=== PATIENT | female | born 1935 | race Hispanic/Latino ===

== ENCOUNTER 2017-06-05 09:48 | Emergency (ER) | payer MEDICARE ==
[~2017-06-05] VITALS: Ht 162.6 cm; Wt 77.6 kg
[~2017-06-05 09:48] MED LIST: ADVAIR 250-501 EACH; ASPIR 8181 MG PO; CARTIA XT240 MG PO; DIOVAN160 MG PO; FERROUS SULFAT325 MG PO; FUROSEMIDE40 MG PO; GLIPIZIDE5 MG PO; KEFLEX500 MG PO; LANTUS 3ML100 UNITS/ SQ; LEVAQUIN250 MG PO; LEVAQUIN500 MG PO; LEVOTHYROXINE50 MCG PO; LOPID600 MG PO; MEDROL4 MG/DOSE-; METOPROLOL SUC100 MG PO; PRAVASTATIN SOD80 MG PO; PROAIR HFA INH8.5 GM INH; SYMBICORT 80-10.2 GM INH
--- NOTE | 2017-06-05 10:53 | Diagnostic Imaging Report ---
EXAMINATION: Chest, CHEST SINGLE (PORTABLE) INDICATION: Shortness of breath. COMPARISON: Portable chest 09/01/2016 FINDINGS: LINES: None. Heart: Normal cardiac silhouette. Vascular: The pulmonary vasculature is within normal limits. Atherosclerotic calcifications of the aortic arch. Mediastinum: No mediastinal, hilar, or axillary mass or lymphadenopathy. Lungs: No parenchymal mass. Low lung volumes are present bilaterally. Bibasilar airspace opacifications. Pleura: No pleural effusion. No pneumothorax. Bones: No acute osseous abnormality. Degenerative changes of the thoracic spine. Soft tissues: Normal. Impression: Bibasilar airspace opacifications may represent atelectasis or developing pneumonia. Signed by: Dr. Jaycob Galindo M.D. on 06/05/2017 10:50 AM
[2017-06-05 11:28] LABS: BASOPHILS # (AUTO) 0.1 (0.0-0.1); BASOPHILS % 1.3 % (0.0-1.0); EOSINOPHILS # (AUTO) 0.2 (0.0-0.4); EOSINOPHILS % 3.6 % (0.0-6.0); HEMATOCRIT 29.9 % (34.2-44.1); HEMOGLOBIN 10.2 g/dL (12.0-16.0); LYMPHOCYTES # (AUTO) 0.4 (1.0-3.2); LYMPHOCYTES % 6.6 % (18.0-39.1); MEAN CORPUSCULAR HEMOGLOBIN 33.8 pg (28-32); MEAN CORPUSCULAR HGB CONC 34.1 g/dL (31-35); MONOCYTES # (AUTO) 0.5 (0.2-0.8); MONOCYTES % 7.2 % (4.4-11.3); NEUTROPHILS # (AUTO) 4.9 (2.1-6.9); NEUTROPHILS % 77.4 % (38.7-80.0); PLATELET COUNT 103 x10e3/uL (140-360); RED BLOOD COUNT 3.02 x10e6/uL (3.6-5.1); RED CELL DISTRIBUTION WIDTH 14.7 % (11.7-14.4)
[2017-06-05 11:47] LABS: ALBUMIN 2.8 g/dL (3.5-5.0); ALBUMIN/GLOBULIN RATIO 0.8 (0.8-2.0); ANION GAP 12.9 mmol/L (8-16); CALCIUM 9.4 mg/dL (8.4-10.2); CREATININE, SERUM 1.82 mg/dL (0.57-1.11); POTASSIUM 3.9 mmol/L (3.5-5.1)
[2017-06-05 12:04] LABS: CREATINE KINASE MB 0.5 ng/mL (0.00-5.00); TROPONIN I 0.014 ng/mL (0-0.300)
[2017-06-05 12:46] VITALS: BP 139/56
== END 2017-06-05 13:32 | disposition home or self-care (01) ==
LOC: ER 09:48
DX: R50.9 Fever, unspecified (principal); R05 Cough; J09.X2 Influenza due to identified novel influenza A virus with other respiratory manifestations; I10 Essential (primary) hypertension; E11.9 Type 2 diabetes mellitus without complications; Z85.118 Personal history of other malignant neoplasm of bronchus and lung
CPT/HCPCS: 36415; 71010; 80053; 82550; 82553; 84484; 85025; 87040; 87400; 93005; 99284

== ENCOUNTER 2018-04-14 10:13 | Inpatient (IN) | payer MEDICARE ==
[~2018-04-14] VITALS: Ht 162.6 cm; Wt 64.2 kg
--- OUTSIDE RECORDS SUMMARY | 2018-04-14 10:16 | XMS REPORT ---
Demographics Address [address] [place] [address] Preferred Language Unknown Marital Status Unknown Sabianism Affiliation Unknown Race Unknown Ethnic Group Unknown Author Author [facility] Address Unknown Phone Unavailable Care Team Providers Care Attractions Associate Name Role Phone Vijya LAMB Unavailable Unavailable Problems This patient has no known problems. Allergies, Adverse Reactions, Alerts This patient has no known allergies or adverse reactions. Medications This patient has no known medications. Results Test Description Test Time Test Comments Text Results Atomic Results Result Comments CHEST SINGLE (PORTABLE) [place] [address] Patient Name: EDWARD CARABALLO MR #: [id number] : 1935 Age/Sex: 81/F Req #: [id number] Adm Physician: Ordered by: VALERIE LAMB MD Report #: [id number] Location: ER Room/Bed: Procedure: [id number] DX/CHEST SINGLE (PORTABLE) Exam Date: 06/05/17 Exam Time: 1035 REPORT STATUS: Signed EXAMINATION: Chest, CHEST SINGLE (PORTABLE) INDICATION: Shortness of breath. COMPARISON: Portable chest 09/01/2016 FINDINGS: LINES: None. Heart: Normal cardiac silhouette. Vascular: The pulmonary vasculature is within normal limits. Atherosclerotic calcifications of the aortic arch. Mediastinum: No mediastinal, hilar, or axillary mass or lymphadenopathy. Lungs: No parenchymal mass. Low lung volumes are present bilaterally. Bibasilar airspace opacifications. Pleura: No pleural effusion. No pneumothorax. Bones: No acute osseous abnormality. Degenerative changes of the thoracic spine. Soft tissues: Normal. Impression: Bibasilar airspace opacifications may represent atelectasis or developing pneumonia. Signed by: Dr. Stacy Villafana M.D. on 06/05/2017 10:50 AM Dictated By: STACY VILLAFANA MD 1050 Transcribed By: ANSLEY on 06/05/17 1050 COPY TO: VALERIE LAMB MD
[2018-04-14 11:37] LABS: CLARITY,URINE HAZY (CLEAR); COLOR,URINE YELLOW (YELLOW); KETONES,URINE NEGATIVE (NEGATIVE); LEUKOCYTE ESTERASE ,URINE TRACE (NEGATIVE); NITRITE,URINE NEGATIVE (NEGATIVE); PROTEIN,URINE DIPSTICK TRACE (NEGATIVE); URINE UROBILINOGEN 0.2 mg/dL (0.2 - 1)
[2018-04-14 11:38] LABS: BILIRUBIN,URINE NEGATIVE (NEGATIVE)
[2018-04-14 11:43] LABS: AMORPHOUS SEDIMENT,URINE FEW (FEW); BACTERIA,URINE MODERATE /HPF; EPITHELIAL CELLS,URINE FEW /LPF; MUCUS,URINE FEW (RARE)
[2018-04-14 11:58] LABS: BASOPHILS # (AUTO) 0.1 (0.0-0.1); BASOPHILS % 1.4 % (0.0-1.0); EOSINOPHILS # (AUTO) 0.4 (0.0-0.4); EOSINOPHILS % 6.5 % (0.0-6.0); HEMATOCRIT 26.5 % (34.2-44.1); HEMOGLOBIN 9.1 g/dL (12.0-16.0); LYMPHOCYTES # (AUTO) 0.7 (1.0-3.2); LYMPHOCYTES % 11.5 % (18.0-39.1); MEAN CORPUSCULAR HEMOGLOBIN 33.8 pg (28-32); MEAN CORPUSCULAR HGB CONC 34.3 g/dL (31-35); MEAN CORPUSCULAR VOLUME 98.5 fL (81-99); MONOCYTES # (AUTO) 0.4 (0.2-0.8); MONOCYTES % 6.5 % (4.4-11.3); NEUTROPHILS % 68.6 % (38.7-80.0); PLATELET COUNT 161 x10e3/uL (140-360); RED BLOOD COUNT 2.69 x10e6/uL (3.6-5.1); RED CELL DISTRIBUTION WIDTH 14.6 % (11.7-14.4)
[2018-04-14 12:08] LABS: ALBUMIN 2.6 g/dL (3.5-5.0); ALBUMIN/GLOBULIN RATIO 0.8 (0.8-2.0); ANION GAP 15.8 mmol/L (8-16); CALCIUM 9.2 mg/dL (8.4-10.2); CREATININE, SERUM 1.95 mg/dL (0.57-1.11); POTASSIUM 4.8 mmol/L (3.5-5.1)
[2018-04-14] MEDS ORDERED: DIATRIZOATE MEGL/DIATRIZOA SOD 30 ML BTL PO ONE (12:18)
[2018-04-14 12:19] LABS: AMYLASE 42 U/L (25-125); LIPASE 27 U/L (8-78)
--- NOTE | 2018-04-14 12:38 | Diagnostic Imaging Report ---
EXAMINATION: CHEST SINGLE (PORTABLE) INDICATION: Shortness of breath. COMPARISON: None FINDINGS: TUBES and LINES: None. LUNGS: Very low lung volumes. Perihilar and interstitial opacities are present. Patchy opacities at the lung base. PLEURA: No pleural effusion or pneumothorax. Mild elevation of the right hemidiaphragm. HEART AND MEDIASTINUM: The cardiomediastinal silhouette is unremarkable. Atherosclerotic calcification of the aortic arch. BONES AND SOFT TISSUES: No acute osseous lesion. Soft tissues are unremarkable. UPPER ABDOMEN: No free air under the diaphragm. IMPRESSION: Very low lung volumes, cannot exclude pulmonary interstitial edema. Patchy opacities at the lung bases may reflect atelectasis or developing pneumonia. Follow-up chest radiograph is suggested to assess for resolution. Signed by: Dr. Michaela Lan MD on 04/14/2018 12:35 PM
[2018-04-14 13:07] LABS: BAND NEUTROPHILS % (MANUAL) 1 %; EOSINOPHILS % (MANUAL) 7 % (0-7); LYMPHOCYTES % (MANUAL) 10 % (19-48); METAMYELOCYTES % (MANUAL) 1 % (0-0); MONOCYTES % (MANUAL) 8 % (3.4-9.0); MYELOCYTES % (MANUAL) 1 % (0-0); NEUTROPHILS % (MANUAL) 71 % (40-74)
[2018-04-14 13:08] LABS: ANISOCYTOSIS SLIGHT; HYPOCHROMASIA SLIGHT; PLATELET ESTIMATE ADEQUATE; PLATELET MORPHOLOGY COMMENT NORMAL; RBC MORPHOLOGY COMMENT NORMAL
--- NOTE | 2018-04-14 14:31 | Diagnostic Imaging Report ---
EXAM: CT Abdomen and Pelvis WITHOUT contrast INDICATION: Right-sided stomach pain. Bloating. COMPARISON: None. TECHNIQUE: Abdomen and pelvis were scanned utilizing a multidetector helical scanner from the lung base to the pubic symphysis without administration of IV contrast. Absence of intravenous contrast decreases sensitivity for detection of focal lesions and vascular pathology. Coronal and sagittal reformations were obtained. Routine protocol was performed. IV CONTRAST: None. ORAL CONTRAST: Gastrografin RADIATION DOSE: Total DLP: 543.76 mGy*cm Estimated effective dose: (DLP x 0.015 x size factor) mSv COMPLICATIONS: None FINDINGS: LINES and TUBES: None. LOWER THORAX: Extensive chronic appearing change in the lung bases. Calcification of the mitral valve. HEPATOBILIARY: Nodular shrunken liver consistent with cirrhosis. Likely small cyst near the dome of the liver. Dilated portal vein measuring 1.7 cm consistent with portal hypertension. No biliary ductal dilation. GALLBLADDER: Surgical clips in the gallbladder fossa. SPLEEN: Prominent size spleen. PANCREAS: No focal masses or ductal dilatation. ADRENALS: No adrenal nodules KIDNEYS/URETERS: No hydronephrosis. No cystic or solid mass lesions. No stones. GI TRACT: No abnormal distention, wall thickening, or evidence of bowel obstruction. Scattered diverticulosis without evidence of diverticulitis. PELVIC ORGANS/BLADDER: A small amount of air is seen within the lumen of the urinary bladder on sagittal image 65 could be due to prior catheterization. 3.5 cm cyst in the left upper pelvis of unknown clinical significance best seen on axial image 74. This may be adnexal in origin. There are what appear to be small right adnexal cysts. LYMPH NODES: No lymphadenopathy. VESSELS: Scattered vascular calcifications. PERITONEUM / RETROPERITONEUM: Marked ascites in the abdomen and pelvis. BONES: Scattered degenerative change.. SOFT TISSUES: Unremarkable. IMPRESSION: 1. Findings consistent with cirrhosis, portal hypertension and marked ascites. 2. Extensive chronic appearing changes in the lung bases. Nonemergent CT scan of the chest may be of benefit. 3. 3.5 cm cyst in the left upper pelvis of unknown significance. This may be adnexal in origin. Nonemergent pelvic MRI may be of benefit. 4. Scattered diverticulosis without evidence of diverticulitis. Signed by: Dr. Nirmal Frank M.D. on 04/14/2018 2:28 PM
[2018-04-14] MEDS ORDERED: SODIUM CHLORIDE FLUSH 10 ML SYR INJ PRN (15:45)
[2018-04-14] MEDS ORDERED: ONDANSETRON HCL INJ 2 MG/ML VIAL IV PRN (15:45)
[2018-04-14] MEDS ORDERED: MORPHINE SULFATE 2 MG/ML SYR IV PRN (15:45)
[2018-04-14] MEDS ORDERED: ALBUTEROL SULFATE HFA 8GM INHALATION AEROSOL INH PRN (16:15)
[2018-04-14 16:36] LABS: INR 1.06; PROTHROMBIN TIME 14.8 seconds (11.9-14.5)
[2018-04-14 16:44] LABS: CREATINE KINASE MB 1.1 ng/mL (0-5.0)
[2018-04-14 16:58] LABS: CHOL/HDL RATIO 5.2 (3.0-3.6)
--- NOTE | 2018-04-14 16:58 | History and Physical ---
PRIMARY CARE PHYSICIAN: Dr. Marie. SECURITY DELIVERY SPECIALIST: Dr. Angelo Eng. CHIEF COMPLAINT: Right upper quadrant abdominal pain. HISTORY OF PRESENT ILLNESS: This is an 82-year-old woman with a history of pulmonary fibrosis now developing right upper quadrant abdominal pain for the past week. The patient's abdomen has not enlarged in size. She does not have any leg edema. She does have chronic pulmonary fibrosis requiring 3 liters of oxygen at home. Her shortness of breath has worsened at home. Now, the patient presents for further evaluation and management. Her imaging suggested cirrhosis. The patient's also had cirrhosis, but he was an alcoholic. The patient does not have a history of excessive alcohol use. PAST MEDICAL HISTORY: Pulmonary fibrosis, urinary tract infection with E. coli, acute pyelonephritis, acute kidney injury, [id number] anemia, chronic kidney disease stage 3, hypertension, urinary tract infection with sepsis, hypertensive kidney disease, diverticulitis with abscess, left adrenal adenoma, thrombocytopenia, hyponatremia, urinary incontinence, mixed type, pneumonia, COPD, diabetes mellitus type 2, and diverticulosis, hypertension and hyperlipidemia, and hypertriglyceridemia. PAST SURGICAL HISTORY: Cholecystectomy, hysterectomy. ALLERGIES: PER ELECTRONIC MEDICAL RECORDS. FAMILY/SOCIAL HISTORY: The patient is . She has 8 children. No alcohol, illicits or cigarettes. MEDICATIONS: Per electronic medical records. REVIEW OF SYSTEMS: Denies any dizziness, chest pain, shortness of breath. Denies any nausea, vomiting, diarrhea. Denies any headache or vision changes. Denies any leg pain. PHYSICAL EXAMINATION VITAL SIGNS: Reviewed. GENERAL APPEARANCE: A tired-appearing woman resting in the bed. HEENT: Anicteric. CARDIOVASCULAR: Normal S1 and S2. LUNGS: Reduced breath sounds grossly with fine crackles at the bases. ABDOMEN: Large abdomen. Veins are visible on the abdominal wall. Right abdomen is tender. EXTREMITIES: No edema. NEUROLOGIC: Alert and oriented x3. Moving all extremities. SKIN: Dry. PSYCHIATRIC: Flat affect. LABS: Reviewed. MEDICATIONS: Reviewed. ASSESSMENT: An 82-year-old woman with: 1. Cirrhosis. 2. Ascites with caput medusae. 3. Hypertensive kidney disease. 4. Chronic pulmonary fibrosis. 5. Anemia of chronic disease with normocytic anemia, moderate. 6. Acute kidney injury in the setting of chronic kidney disease, stage 3. 7. Overweight stage. BMI 25.7. 8. Urinary tract infection. 9. Interstitial pulmonary edema. 10. Portal hypertension on imaging. 11. Diverticulosis without any evidence of diverticulitis. 12. Hypothyroidism. 13. Diabetes mellitus type 2. 14. Hypertension. 15. Hyperlipidemia. PLAN: 1. Obtain MRI to further image the liver. 2. GI consultation. 3. Obtain acute hepatitis panel. 4. Obtain alpha fetoprotein. 5. Will diurese the patient with IV Lasix while monitoring renal function, does have a history of chronic kidney disease, stage 3, and seems to have some worsening renal dysfunction. 6. Pulmonary consultation in the setting of chronic pulmonary fibrosis and pulmonary edema at this time. 7. Strict I's and O's. 8. Petty placement. 9. The patient will need a paracentesis. Will consult interventional radiology. 10. Will obtain a cell count and gram stain and culture of the fluid. 11. Will restart pulmonary medications. Will hold aspirin. Restart ferrous sulfate. 12. Will obtain lipid panel and restart gemfibrozil. 13. Will obtain hemoglobin A1c and lipid panel. 14. Check TSH. 15. Use SCDs for DVT prophylaxis and Pepcid for GI prophylaxis. DISPOSITION: Monitor closely. Follow up labs and imaging. Job#: [id number]
[2018-04-14 17:18] LABS: THYROID STIMULATING HORMONE 7.341 uIU/mL (0.350-4.940)
--- NOTE | 2018-04-14 17:36 | Consultation ---
DATE OF CONSULTATION: April 14, 2018 PULMONARY/CRITICAL CARE CONSULTATION REFERRING PHYSICIAN: Dr. Surjit Devries. PRIMARY CARE PHYSICIAN: Dr. Marie. CHIEF COMPLAINT: Known history of pulmonary fibrosis and cirrhosis with worsening abdominal swelling and dyspnea. HISTORY OF PRESENT ILLNESS: The patient is an 82-year-old woman. She has a history of usual interstitial pneumonitis for the past several years. She had a swallowing evaluation previously that was negative. She also has a history of cirrhosis radiographically in the past although she has never had symptoms from it. She denies ever being a drinker or having any history of hepatitis. The patient reports increased swelling of the abdomen. It has been increasing in severity over the past couple of weeks. She also notes worsening dyspnea and congestion. She has some mild cough but no fevers. PAST SURGICAL HISTORY: 1. Status post cholecystectomy. 2. Status post partial colectomy. 3. Status post hysterectomy. PAST MEDICAL HISTORY: 1. Diabetes. 2. Hypertension. 3. Hypothyroidism. SOCIAL HISTORY: The patient is a nonsmoker. She has never been a drinker. Her worked for a [employer] and had exposure to asbestos. He also had cirrhosis. FAMILY HISTORY: There is a history of diabetes and renal failure in the family. REVIEW OF SYSTEMS: No fever or headache. No neck pain. The patient does not have any chest pain. She does have some worsening dyspnea and has been using more oxygen recently. She has increasing abdominal girth. She notes some abdominal pain as well. She has no rebound or vomiting. She does have some mild leg edema. PHYSICAL EXAMINATION: VITAL SIGNS: Are stable. HEENT: Examination shows no facial swelling or erythema. LYMPHATIC: Examination shows no submandibular, cervical or supraclavicular adenopathy. CARDIAC: Exam reveals a regular rate and rhythm with a normal S1 and S2. There are no murmurs or rubs. LUNGS: Auscultation reveals decreased breath sounds at the bases. ABDOMEN: Distended. There is some ascites. There is no localized tenderness. EXTREMITIES: Patient does have 1+ leg edema. IMPRESSION: 1. Cirrhosis with new onset ascites. 1. Idiopathic pulmonary fibrosis. 2. Diabetes. 3. Chronic renal insufficiency stage 3 to 4. 4. Gastroesophageal reflux. PLAN: 1. Patient will need an ultrasound-guided thoracentesis with analysis for spontaneous bacterial peritonitis. 2. Patient should have antibiotics for possible spontaneous bacterial peritonitis. 3. Patient should receive albumin following the thoracentesis to prevent any worsening renal insufficiency. 4. We will consider spironolactone. 5. Continue oxygen. 6. Patient is not a candidate for Esbriet at this time because of her worsening liver problems. 7. Treatment for the pulmonary fibrosis should be conservative until the liver problem is addressed. Job#: [id number] EV
[2018-04-14] MEDS: FUROSEMIDE INJ 10 MG/ML 2 ML VIAL IV SCH (19:14)
[2018-04-14] MEDS: FAMOTIDINE 20 MG TAB PO SCH (19:14)
[2018-04-14] MEDS: FERROUS SULFATE 325 MG TAB PO SCH (19:14)
[2018-04-14] MEDS: AZTREONAM 1 GM/NS 50 ML 50 ML IV SCH (19:14)
[2018-04-14 20:46] LABS: BODY FLUID APPEARANCE TURBID; BODY FLUID COLOR RED; BODY FLUID TYPE PERITONEAL; RBC,BODY FLUID 13365 cells/uL; WBC,BODY FLUID 99 cells/uL
[2018-04-14] MEDS ORDERED: INSULIN DETEMIR 100 UNIT/ML PEN SQ SCH (21:00)
[2018-04-14 22:01] LABS: LYMPHOCYTES,BODY FLUID 92 %; MONO/MACROPHG,BODY FLUID 8 %
[2018-04-14 22:02] LABS: NEUTROPHILS,BODY FLUID 0 %
[2018-04-14 22:04] LABS: CREATINE KINASE MB 1.2 ng/mL (0-5.0)
[2018-04-14] MEDS ORDERED: DEXTROSE 50% SYRINGE 50 ML IV PRN (22:45)
[2018-04-14] MEDS: INSULIN REGULAR, HUMAN 100 UNIT/1 ML 3ML VIAL SQ SCH (23:05)
--- NOTE | 2018-04-15 06:14 | Diagnostic Imaging Report ---
CHEST SINGLE (PORTABLE), 04/15/2018 7:00 AM Technique: CHEST SINGLE (PORTABLE) Comparison: Previous day Clinical history: Shortness of breath Findings: Stable appearance of the heart, mediastinum, lungs and pleural spaces. Very low lung volumes with reticular opacities most likely underlying pulmonary fibrosis Impression: Stable chest Signed by: Dr Marisel Bear MD on 04/15/2018 6:11 AM
[2018-04-15 06:22] LABS: BASOPHILS # (AUTO) 0.1 (0.0-0.1); BASOPHILS % 1.5 % (0.0-1.0); EOSINOPHILS # (AUTO) 0.5 (0.0-0.4); EOSINOPHILS % 9.6 % (0.0-6.0); HEMATOCRIT 23.5 % (34.2-44.1); LYMPHOCYTES # (AUTO) 0.9 (1.0-3.2); LYMPHOCYTES % 15.7 % (18.0-39.1); MEAN CORPUSCULAR HEMOGLOBIN 33.2 pg (28-32); MEAN CORPUSCULAR VOLUME 97.5 fL (81-99); MONOCYTES # (AUTO) 0.5 (0.2-0.8); MONOCYTES % 8.7 % (4.4-11.3); NEUTROPHILS # (AUTO) 3.3 (2.1-6.9); NEUTROPHILS % 60.4 % (38.7-80.0); PLATELET COUNT 124 x10e3/uL (140-360); RED BLOOD COUNT 2.41 x10e6/uL (3.6-5.1); RED CELL DISTRIBUTION WIDTH 14.7 % (11.7-14.4)
[2018-04-15 06:34] LABS: ANION GAP 11.8 mmol/L (8-16); CALCIUM 8.9 mg/dL (8.4-10.2); CREATININE, SERUM 1.63 mg/dL (0.57-1.11); POTASSIUM 3.8 mmol/L (3.5-5.1)
[2018-04-15] MEDS ORDERED: AZTREONAM 1 GM VIAL ONE (06:44)
[2018-04-15] MEDS ORDERED: FUROSEMIDE INJ 10 MG/ML 2 ML VIAL ONE (06:45)
[2018-04-15] MEDS ORDERED: LEVOTHYROXINE SODIUM 50 MCG TAB ONE ×2 (06:45→06:55)
[2018-04-15] MEDS ORDERED: SODIUM CHLORIDE 0.9% 50ML 50 ML ONE (06:45)
[2018-04-15 06:50] LABS: CREATINE KINASE 14 IU/L (29-168)
[2018-04-15 06:51] LABS: CREATINE KINASE MB < 1.00 ng/mL (0-4.3)
[2018-04-15] MEDS: LEVOTHYROXINE SODIUM 50 MCG TAB PO SCH (06:55)
[2018-04-15] MEDS: AZTREONAM 1 GM/NS 50 ML 50 ML IV SCH (07:01)
[2018-04-15] MEDS: FUROSEMIDE INJ 10 MG/ML 2 ML VIAL IV SCH ×2 (07:01→17:40)
[2018-04-15 07:37] LABS: EOSINOPHILS % (MANUAL) 3 % (0-7); LYMPHOCYTES % (MANUAL) 16 % (19-48); MONOCYTES % (MANUAL) 7 % (3.4-9.0); MYELOCYTES % (MANUAL) 1 % (0-0); NEUTROPHILS % (MANUAL) 73 % (40-74); RBC MORPHOLOGY COMMENT NORMAL
[2018-04-15 07:38] LABS: PLATELET ESTIMATE ADEQUATE; PLATELET MORPHOLOGY COMMENT NORMAL
[2018-04-15] MEDS: FAMOTIDINE 20 MG TAB PO SCH ×2 (12:47→17:40)
[2018-04-15] MEDS: FERROUS SULFATE 325 MG TAB PO SCH ×2 (12:47→17:40)
[2018-04-15] MEDS: INSULIN REGULAR, HUMAN 100 UNIT/1 ML 3ML VIAL SQ SCH ×3 (12:56→20:51)
[2018-04-15 15:15] VITALS: BP 151/71
[2018-04-15 15:16] VITALS: BP 151/58
[2018-04-15] MEDS: AZTREONAM 1 GM VIAL IV SCH (18:11)
--- NOTE | 2018-04-15 18:58 | Diagnostic Imaging Report ---
EXAMINATION: MRI Abdomen without contrast. TECHNIQUE: Axial T1 nonfat sat in and out of phase, axial T2 fat sat, coronal T2 nonfat sat, axial DWI and ADC MR images of the abdomen were obtained. No intravenous gadolinium was given due to large infarct. CLINICAL HISTORY:Cirrhosis, portal hypertension, further evaluate cirrhotic liver COMPARISON: CT abdomen and pelvis without contrast 04/14/2018 FINDINGS: Markedly limited exam due to breathing motion artifact, as the patient was unable to breath-hold LOWER THORAX: No effusion or masses.. LIVER: Nodular hepatic contour, consistent with cirrhosis. No hepatic signal abnormality. Ill-defined 1.6 cm T2 mildly hyperintense lesion in hepatic segment VIII at the dome (series 9, image 15) but no definite restricted diffusion. No other focal lesions. BILIARY: Moderate to marked dilation of the common bile duct, which measures 1.6 cm in the ira hepatis and 1.1 cm at the pancreatic head. No intraluminal filling defects. No intrahepatic biliary ductal dilation. Cholecystectomy clips.. . PANCREAS: No mass or ductal dilatation. SPLEEN: No splenomegaly. ADRENALS: No nodules. KIDNEYS: No hydronephrosis or solid enhancing mass in the imaged portion of the kidneys. PERITONEUM / RETROPERITONEUM: Moderate intra-abdominal ascites.. GI TRACT: Visualized bowel shows no dilation or obstruction. LYMPH NODES: No upper abdominal lymphadenopathy. VESSELS: Normal flow voids are identified.. Dilated portal vein, which measures approximately 1.5-1.6 cm.. . BONES AND SOFT TISSUES: No abnormal bone marrow signal. No soft tissue abnormalities. IMPRESSION: 1. Markedly limited exam due to breathing motion artifact, as the patient was unable to breath-hold. 2. Cirrhotic liver with evidence of portal hypertension, manifested by ascites and dilated portal vein. 3. Ill-defined 1.6 cm lesion in hepatic segment VIII at the dome. This lesion measured fluid density on recent CT dated 04/14/2018 and shows no restricted diffusion, likely representing a simple cyst. Further characterization is limited by the lack of intravenous contrast. No suspicious lesions in this noncontrast exam. 4. Moderate to marked dilation of the common bile duct, likely reflecting postcholecystectomy status. No intraluminal filling defects are identified. Signed by: Dr. Peyman Lopez M.D. on 04/15/2018 6:55 PM
[2018-04-15 19:15] LABS: FREE THYROXINE INDEX 0.968 (1.4-3.8); THYROID STIMULATING HORMONE 4.668 uIU/mL (0.350-4.940)
[2018-04-15 20:00] VITALS: BP 157/61
[2018-04-15 20:30] VITALS: BP 157/61
[2018-04-16] VITALS: BP 157/66
[2018-04-16 04:00] VITALS: BP 148/69
[2018-04-16] MEDS: AZTREONAM 1 GM VIAL IV SCH (06:13)
[2018-04-16] MEDS: FUROSEMIDE INJ 10 MG/ML 2 ML VIAL IV SCH (06:14)
[2018-04-16] MEDS: LEVOTHYROXINE SODIUM 50 MCG TAB PO SCH (06:14)
[2018-04-16 07:11] LABS: ALANINE AMINOTRANSFERASE < 6 IU/L (0-55); ALBUMIN 2.3 g/dL (3.5-5.0); ALBUMIN/GLOBULIN RATIO 0.8 (0.8-2.0); ALKALINE PHOSPHATASE 91 IU/L (40-150); ANION GAP 11.5 mmol/L (8-16); BLOOD UREA NITROGEN 31 mg/dL (7-26); BUN/CREATININE RATIO 21 (6-25); CALCIUM 9.2 mg/dL (8.4-10.2); CARBON DIOXIDE 25 mmol/L (22-29); CHLORIDE 104 mmol/L (98-107); EST GLOMERULAR FILTRATION RATE 33 ML/MIN (60-); GLUCOSE 95 mg/dL (74-118); POTASSIUM 3.5 mmol/L (3.5-5.1); SODIUM 137 mmol/L (136-145)
[2018-04-16] MEDS: INSULIN REGULAR, HUMAN 100 UNIT/1 ML 3ML VIAL SQ SCH (07:30)
[2018-04-16 08:00] VITALS: BP 148/67
[2018-04-16] MEDS: FAMOTIDINE 20 MG TAB PO SCH (09:00)
[2018-04-16] MEDS: FERROUS SULFATE 325 MG TAB PO SCH (09:00)
[2018-04-16] MEDS ORDERED: FUROSEMIDE40 MG PO (09:26)
[2018-04-16] MEDS ORDERED: SPIRONOLACTONE25 MG PO (09:26)
[2018-04-16] MEDS ORDERED: FAMOTIDINE20 MG PO (09:26)
[2018-04-16 11:00] VITALS: BP 196/83
--- NOTE | 2018-04-17 07:38 | Diagnostic Imaging Report ---
Procedure: Ultrasound-guided diagnostic and therapeutic paracentesis cnc operator machinist: Michaela Lan MD Pre-operative diagnosis: Ascites Post-operative diagnosis: Decreased ascites status post paracentesis Conscious Sedation: The patient's heart rate and pulse oximetry were continuously monitored by the IR nurse. Additional Medications: Lidocaine 1% for local anesthesia Estimated blood loss: Minimal Specimens: 3,450 cc of serosanguinous fluid Implants: None TECHNIQUE/FINDINGS: Informed consent was obtained from the patient and documented in the medical record. The patient was placed in the supine position. Initial ultrasound demonstrated moderate to large volume lower abdominal ascites. The right lower abdomen was prepped and draped in standard sterile fashion. 1% lidocaine was infiltrated into the skin and subcutaneous tissues for local anesthesia. Then under continuous sonographic guidance, a 7 Fr catheter was advanced into the peritoneal space. A total of 3,450 cc of serosanguinous fluid was aspirated. The catheter was removed. Sterile dressing was applied. Sample was sent to the lab. The patient tolerated the procedure well. IMPRESSION: Ultrasound-guided diagnostic and therapeutic paracentesis with removal of 3,450 cc of serosanguinous fluid. Signed by: Dr. Michaela Lan MD on 04/17/2018 7:35 AM
--- NOTE | 2018-04-17 07:38 | Diagnostic Imaging Report ---
Procedure: Ultrasound-guided diagnostic and therapeutic paracentesis [place] machine operator: Michaela Lan MD Pre-operative diagnosis: Ascites Post-operative diagnosis: Decreased ascites status post paracentesis Conscious Sedation: The patient's heart rate and pulse oximetry were continuously monitored by the IR nurse. Additional Medications: Lidocaine 1% for local anesthesia Estimated blood loss: Minimal Specimens: 3,450 cc of serosanguinous fluid Implants: None TECHNIQUE/FINDINGS: Informed consent was obtained from the patient and documented in the medical record. The patient was placed in the supine position. Initial ultrasound demonstrated moderate to large volume lower abdominal ascites. The right lower abdomen was prepped and draped in standard sterile fashion. 1% lidocaine was infiltrated into the skin and subcutaneous tissues for local anesthesia. Then under continuous sonographic guidance, a 7 Fr catheter was advanced into the peritoneal space. A total of 3,450 cc of serosanguinous fluid was aspirated. The catheter was removed. Sterile dressing was applied. Sample was sent to the lab. The patient tolerated the procedure well. IMPRESSION: Ultrasound-guided diagnostic and therapeutic paracentesis with removal of 3,450 cc of serosanguinous fluid. Signed by: Dr. Michaela Lan MD on 04/17/2018 7:35 AM
== END 2018-04-16 11:26 | disposition home or self-care (01) | DRG 433 ==
LOC: ER 10:13 → UNDOADMIN 15:35 → ERHOLD 15:35 → MED/SURG2 04-15 13:56
PROVIDERS: ADMIT Internal Medicine; ATTEND Internal Medicine
PROC: 0W9G3ZX Drainage of Peritoneal Cavity, Percutaneous Approach, Diagnostic (ICD-10-PCS; principal; 2018-04-14)
DX: K74.69 Other cirrhosis of liver (principal); K76.6 Portal hypertension; R18.8 Other ascites; N17.9 Acute kidney failure, unspecified; N39.0 Urinary tract infection, site not specified; Z99.81 Dependence on supplemental oxygen; I12.9 Hypertensive chronic kidney disease with stage 1 through stage 4 chronic kidney disease, or unspecified chronic kidney disease; N18.3 Chronic kidney disease, stage 3 (moderate); E11.22 Type 2 diabetes mellitus with diabetic chronic kidney disease; Z88.1 Allergy status to other antibiotic agents; Z88.2 Allergy status to sulfonamides; Z83.3 Family history of diabetes mellitus; Z82.49 Family history of ischemic heart disease and other diseases of the circulatory system; E78.5 Hyperlipidemia, unspecified; E78.1 Pure hyperglyceridemia; I86.8 Varicose veins of other specified sites; D63.1 Anemia in chronic kidney disease; E66.3 Overweight; Z68.25 Body mass index [BMI] 25.0-25.9, adult; K57.30 Diverticulosis of large intestine without perforation or abscess without bleeding; E03.9 Hypothyroidism, unspecified; J84.112 Idiopathic pulmonary fibrosis; K21.9 Gastro-esophageal reflux disease without esophagitis; Z79.4 Long term (current) use of insulin
CPT/HCPCS: 36415; 49083; 51700; 71045; 74176; 74181; 74470; 80048; 80053; 80061; 81001; 82103; 82105; 82140; 82150; 82390; 82550; 82553; 82948; 83036; 83690; 84436; 84443; 84479; 84484; 85025; 85610; 86039; 86255; 87070; 87086; 87186; 87205; 89051; 93005; 99284; J1940

== ENCOUNTER 2018-05-10 16:05 | Inpatient (IN) | payer MEDICARE ==
[2018-05-09 21:34] VITALS: BP 156/69
[~2018-05-10] VITALS: Ht 162.6 cm; Wt 59.0 kg
[~2018-05-10 16:05] MED LIST changes: +FAMOTIDINE20 MG PO; +SPIRONOLACTONE25 MG PO
[2018-05-10] MEDS ORDERED: MEROPENEM 1GM 100 ML IV STA (16:08)
[2018-05-10] MEDS ORDERED: SODIUM CHLORIDE 0.9% 500ML 500 ML IV STA (16:08)
[2018-05-10] MEDS ORDERED: SODIUM CHLORIDE 0.9% 1000ML 1,000 ML IV STA (16:08)
[2018-05-10] MEDS ORDERED: MEROPENEM 1 GM VIAL IV NR (16:30)
[2018-05-10 17:15] LABS: BASOPHILS # (AUTO) 0.2 (0.0-0.1); BASOPHILS % 1.5 % (0.0-1.0); EOSINOPHILS # (AUTO) 0.3 (0.0-0.4); HEMATOCRIT 25.4 % (34.2-44.1); HEMOGLOBIN 9.6 g/dL (12.0-16.0); LYMPHOCYTES # (AUTO) 0.9 (1.0-3.2); LYMPHOCYTES % 8.1 % (18.0-39.1); MEAN CORPUSCULAR HEMOGLOBIN 32.3 pg (28-32); MEAN CORPUSCULAR HGB CONC 37.8 g/dL (31-35); MEAN CORPUSCULAR VOLUME 85.5 fL (81-99); MONOCYTES # (AUTO) 0.8 (0.2-0.8); NEUTROPHILS # (AUTO) 7.3 (2.1-6.9); NEUTROPHILS % 66.9 % (38.7-80.0); PLATELET COUNT 161 x10e3/uL (140-360); RED BLOOD COUNT 2.97 x10e6/uL (3.6-5.1); RED CELL DISTRIBUTION WIDTH 13.7 % (11.7-14.4)
[2018-05-10 17:29] LABS: ALBUMIN/GLOBULIN RATIO 0.8 (0.8-2.0); ANION GAP 15.2 mmol/L (8-16); CALCIUM 9.6 mg/dL (8.4-10.2); CREATININE, SERUM 2.45 mg/dL (0.57-1.11); POTASSIUM 4.2 mmol/L (3.5-5.1)
[2018-05-10 17:35] LABS: CREATINE KINASE MB 0.7 ng/mL (0-5.0)
--- NOTE | 2018-05-10 17:39 | Diagnostic Imaging Report ---
EXAM: XR CHEST 1 VIEW DATE: 05/10/2018 4:08 PM INDICATION: Weakness COMPARISON: 04/15/2018, no report available FINDINGS: Lines and Tubes: None Heart and Mediastinum: Accentuated by low lung volumes. Probable enlarged. Lungs and Pleura: Moderate interstitial and airspace opacities. Elevation right hemidiaphragm. Bones and Soft Tissues: No acute findings. IMPRESSION: 1. Worsening opacity suggesting worsening edema and/or pneumonia. Signed by: Dr. Joshua Cordero MD on 05/10/2018 5:36 PM
[2018-05-10 19:13] LABS: CLARITY,URINE SL CLOUDY (CLEAR); COLOR,URINE YELLOW (YELLOW); KETONES,URINE NEGATIVE (NEGATIVE); LEUKOCYTE ESTERASE ,URINE 2+ (NEGATIVE); NITRITE,URINE NEGATIVE (NEGATIVE); PROTEIN,URINE DIPSTICK 1+ (NEGATIVE)
[2018-05-10 19:14] LABS: BILIRUBIN,URINE NEGATIVE (NEGATIVE); URINE UROBILINOGEN 0.2 mg/dL (0.2 - 1)
[2018-05-10] MEDS ORDERED: SODIUM CHLORIDE FLUSH 10 ML SYR INJ PRN (19:15)
[2018-05-10 19:25] LABS: RBC,URINE >50 /HPF (0-5)
[2018-05-10 19:39] LABS: HYPOCHROMASIA SLIGHT; LYMPHOCYTES % (MANUAL) 11 % (19-48); METAMYELOCYTES % (MANUAL) 3 % (0-0); MONOCYTES % (MANUAL) 14 % (3.4-9.0); NEUTROPHILS % (MANUAL) 68 % (40-74); PLATELET ESTIMATE ADEQUATE; PLATELET MORPHOLOGY COMMENT FEW LARGE; RBC MORPHOLOGY COMMENT NORMAL; TOXIC GRANULATION SLIGHT
[2018-05-10 20:06] LABS: POTASSIUM,URINE 15.5 mmol/L
[2018-05-10 20:21] LABS: ANION GAP 13.8 mmol/L (8-16); CALCIUM 8.6 mg/dL (8.4-10.2); CREATININE, SERUM 2.12 mg/dL (0.57-1.11); POTASSIUM 3.8 mmol/L (3.5-5.1)
[2018-05-10 22:20] VITALS: BP 156/69
[2018-05-11] VITALS (8 sets, daily range): BP systolic 113–163; BP diastolic 55–70
[2018-05-11] MEDS ORDERED: DEXTROSE 5% 1,000 ML IV SCH (02:00)
[2018-05-11] MEDS ORDERED: DESMOPRESSIN ACETATE 4 MCG/ML VIAL IV ONE (02:00)
[2018-05-11] MEDS ORDERED: DESMOPRESSIN ACETATE 1 MCG in SODIUM CHLORIDE 0.9% 50 ML IV NR (04:15)
[2018-05-11 04:47] LABS: ANION GAP 15.5 mmol/L (8-16); CALCIUM 9.1 mg/dL (8.4-10.2); CREATININE, SERUM 1.94 mg/dL (0.57-1.11); POTASSIUM 3.5 mmol/L (3.5-5.1)
[2018-05-11] MEDS ORDERED: SPIRONOLACTONE25 MG PO (07:32)
[2018-05-11] MEDS ORDERED: FAMOTIDINE20 MG PO (07:32)
[2018-05-11] MEDS ORDERED: VITAMIN D3400 UNIT PO (07:32)
[2018-05-11] MEDS ORDERED: TAMSULOSIN HCL0.4 MG PO (07:32)
[2018-05-11] MEDS ORDERED: SODIUM CHLORIDE 3% 500 ML IV ONE (09:30)
[2018-05-11 09:57] LABS: BLOOD UREA NITROGEN 61 mg/dL (7-26); GLUCOSE 133 mg/dL (74-118); OSMOLALITY,SERUM 254 mOsm/kg (278-305)
[2018-05-11] MEDS ORDERED: SODIUM CHLORIDE 0.9% 1000ML 1,000 ML IV SCH (10:00)
[2018-05-11 10:01] LABS: SODIUM 116 mmol/L (136-145)
[2018-05-11] MEDS: SODIUM CHLORIDE 0.9% 1000ML 1,000 ML IV SCH (10:15)
[2018-05-11] MEDS: ASPIRIN 81 MG CHEW TAB PO SCH (12:30)
--- NOTE | 2018-05-11 13:42 | History and Physical ---
PRIMARY CARE PHYSICIAN: Dr. Marie. CHIEF COMPLAINT: Fatigue, weakness and leg twitching. HISTORY OF PRESENT ILLNESS: This is an 82-year-old woman with a history of cirrhosis who has been feeling fatigued and tired for the past 4 days. On Tuesday, patient was feeling very weak and reduced appetite. Patient was not eating. There was no diarrhea. She had been medications provided by her family. Per the family, the patient has not become confused but she has been very weak and fatigued. Yesterday, right leg started twitching, therefore brought to the hospital, found to have severe hyponatremia and also urinary tract infection. She is admitted for further evaluation and management. PAST MEDICAL HISTORY: Pulmonary fibrosis, urinary tract infection with E. coli, acute pyelonephritis, acute kidney injury, [id number] anemia, chronic kidney disease stage 3, hypertension, urinary tract infection with sepsis, hypertensive kidney disease, diverticulitis with abscess, left adrenal adenoma, thrombocytopenia, hyponatremia, urinary incontinence mixed type, pneumonia, COPD, diabetes mellitus type 2, diverticulosis, hypertension, hyperlipidemia, and hypertriglyceridemia. PAST SURGICAL HISTORY: Cholecystectomy, hysterectomy. ALLERGIES: PER ELECTRONIC MEDICAL RECORDS. FAMILY/SOCIAL HISTORY: The patient is . She has 8 children. No alcohol, illicits or cigarettes. MEDICATIONS: Per electronic medical record. REVIEW OF SYSTEMS: Denies any chest pain, shortness of breath. Denies any headache, back pain, leg pain or shortness of breath. PHYSICAL EXAMINATION VITAL SIGNS: Reviewed. GENERAL APPEARANCE: A tired-appearing woman resting in the bed. HEENT: Anicteric. CARDIOVASCULAR: Normal S1 and S2. LUNGS: Moderate breath sounds. ABDOMEN: Soft, nontender, and nondistended. : Shows Petty in place. EXTREMITIES: No edema or calf tenderness. NEUROLOGIC: She is awake, alert. She moves all extremities. SKIN: Dry. PSYCHIATRIC: Normal affect. LABS: Reviewed. MEDICATIONS: Reviewed. ASSESSMENT: An 82-year-old woman with 1. Severe hyponatremia. 2. Right leg tremor due to hyponatremia. 3. Acute kidney injury in the setting of chronic kidney disease, stage 3. 4. Urinary tract infection. 5. Cirrhosis. 6. Hyponatremia. 7. Diabetes mellitus type 2. 8. Normocytic anemia, moderate. PLAN 1. We will rehydrate patient. Sodium is improving with saline only, therefore we will continue saline and monitor sodium every 8 hours. 2. We will check thyroid function. 3. We will continue home medications. 4. Nephrology on board. 5. Monitor closely and check sodium level every 8 hours. 6. Use SCD for DVT prophylaxis. 7. Use Pepcid for GI prophylaxis. 8. Continue Petty at this time. Plan to remove Petty tomorrow. Job#: [id number] [place]IL[place]
[2018-05-11] MEDS: FERROUS SULFATE 325 MG TAB PO SCH ×2 (15:09→20:33)
[2018-05-11] MEDS: FAMOTIDINE 20 MG TAB PO SCH (16:43)
[2018-05-11] MEDS: GEMFIBROZIL 600 MG TAB PO SCH (16:43)
[2018-05-11] MEDS ORDERED: SIMVASTATIN 80 MG TAB PO SCH (21:00)
[2018-05-11] MEDS ORDERED: TAMSULOSIN HCL 0.4 MG CAP PO SCH (21:00)
[2018-05-11] MEDS ORDERED: DEXTROSE 50% SYRINGE 50 ML IV PRN (21:15)
[2018-05-11] MEDS: INSULIN REGULAR, HUMAN 100 UNIT/1 ML 3ML VIAL SQ SCH (21:51)
[2018-05-11] MEDS ORDERED: SODIUM CHLORIDE IV ONE (22:00)
[2018-05-11] MEDS ORDERED: STERILE WATER IV ONE (22:00)
[2018-05-11] MEDS ORDERED: STERILE WATER IV SCH (23:15)
[2018-05-11] MEDS ORDERED: SODIUM CHLORIDE IV SCH (23:15)
[2018-05-12] VITALS (49 sets, daily range): BP systolic 74–149; BP diastolic 39–78
[2018-05-12] MEDS: SODIUM CHLORIDE 0.9% 1000ML 1,000 ML IV SCH (02:40)
[2018-05-12] MEDS ORDERED: LEVOTHYROXINE SODIUM 75 MCG TAB PO SCH (06:00)
[2018-05-12] MEDS ORDERED: INSULIN REGULAR, HUMAN 100 UNIT/1 ML 3ML VIAL SQ SCH (07:30)
[2018-05-12] MEDS: INSULIN REGULAR, HUMAN 100 UNIT/1 ML 3ML VIAL SQ SCH ×2 (07:30→11:30)
[2018-05-12] MEDS: GEMFIBROZIL 600 MG TAB PO SCH (08:34)
[2018-05-12] MEDS: FAMOTIDINE 20 MG TAB PO SCH (08:34)
[2018-05-12] MEDS ORDERED: METOPROLOL SUCCINATE 50 MG TAB XL PO SCH (09:00)
[2018-05-12] MEDS ORDERED: FUROSEMIDE INJ 10 MG/ML 4 ML VIAL IV SCH (09:00)
[2018-05-12] MEDS: ASPIRIN 81 MG CHEW TAB PO SCH (10:00)
[2018-05-12] MEDS: FERROUS SULFATE 325 MG TAB PO SCH ×2 (10:00→13:41)
[2018-05-12] MEDS ORDERED: SODIUM CHLORIDE 1 GM TAB PO SCH (14:00)
== END 2018-05-12 15:20 | disposition hospice, home (50) | DRG 683 ==
LOC: ER 16:05 → ERHOLD 19:54 → MED/SURG2 21:36 → ICU 05-11 22:43
PROVIDERS: ADMIT Internal Medicine; ATTEND Internal Medicine
DX: N17.9 Acute kidney failure, unspecified (principal); E87.1 Hypo-osmolality and hyponatremia; N39.0 Urinary tract infection, site not specified; E87.2 Acidosis; I12.9 Hypertensive chronic kidney disease with stage 1 through stage 4 chronic kidney disease, or unspecified chronic kidney disease; E11.22 Type 2 diabetes mellitus with diabetic chronic kidney disease; N18.3 Chronic kidney disease, stage 3 (moderate); J84.10 Pulmonary fibrosis, unspecified; K74.60 Unspecified cirrhosis of liver; D64.9 Anemia, unspecified; Z66 Do not resuscitate
CPT/HCPCS: 36415; 51700; 71045; 80048; 80053; 81001; 82550; 82553; 82947; 82948; 83605; 83935; 84133; 84295; 84300; 84443; 84484; 84520; 85025; 87040; 87086; 87186; 93005; 99284; J1940; J2185; J7030; J7040; J7050; J7070